=== PATIENT | male | born 1970 | race African-American/Black ===

== ENCOUNTER 2017-01-25 10:24 | Emergency (ER) | payer OTHER ==
[~2017-01-25] VITALS: Ht 177.8 cm; Wt 90.7 kg
[~2017-01-25 10:24] MED LIST: AMITRIPTYLINE H25 M2; IBUPROFEN 800800 M1 PO; PRILOSEC40 MG PO; VICODIN 5-5001 EACH PO; XANAX 0.5 MG0.5 M1 PO; ZOFRAN ODT4 MG PO; ZPAK PO
[2017-01-25 11:36] LABS: ABSOLUTE NEUTROPHILS 8.1 thou/uL (1.4-8.2); BASOPHILS 0.2 % (0.0-2.0); EOSINOPHILS 0.5 % (0.0-3.0); HEMATOCRIT 38.9 % (42.0-52.0); HEMOGLOBIN 13.6 gm/dL (14.0-18.0); MCH 30.8 pg (26.0-34.0); MCV 87.9 fL (80.0-100.0); PLATELET COUNT 248 thou/uL (150-400); POLYS 84.3 % (36.0-66.0); RBC 4.42 mil/uL (4.50-6.00); RDW 14.1 % (10.5-14.5); WBC 9.6 thou/uL (4.0-11.0)
[2017-01-25 11:37] LABS: MANUAL DIFF NO
[2017-01-25 11:44] LABS: CALCIUM 9.4 mg/dL (8.5-10.1); CREATININE 1.4 mg/dL (0.7-1.3); POTASSIUM 3.6 mmol/L (3.5-5.1)
[2017-01-25 11:50] LABS: ALBUMIN 4.1 g/dL (3.4-5.0); TOTAL BILIRUBIN 0.3 mg/dL (<0.1-1.0); TOTAL PROTEIN 8.2 g/dL (6.4-8.2)
[2017-01-25] MEDS ORDERED: PHENERGAN 25 MG25 M1 PO (13:53)
[2017-01-25] MEDS ORDERED: NAPROSYN500 MG PO (13:53)
[2017-01-25 14:15] VITALS: BP 125/83
== END 2017-01-25 13:54 | disposition home or self-care (01) ==
LOC: ER 10:24
PROVIDERS: Physician Assistant
DX: G89.29 Other chronic pain (principal); R10.13 Epigastric pain; R11.2 Nausea with vomiting, unspecified; Z88.8 Allergy status to other drugs, medicaments and biological substances

== ENCOUNTER 2017-04-17 15:16 | Inpatient (IN) | payer OTHER ==
[~2017-04-17] VITALS: Ht 180.3 cm; Wt 90.7 kg
--- NOTE | ~2017-04-17 | HC ---
[facility] [address] [address] CONSULTATION Name: MADDI OCASIO Norberto Room #: 401-I [facility] IN ..#: [id number] Admission: 04/17/17 Attend Phys: Ivory Tyson Discharge: Date of : 74 Report #: [id number] THIS REPORT FOR: //name// CC: FAM physician/PCP Ivory Tyson REASON FOR PRESENTATION: Abdominal pain. REASON FOR PRESENTATION CONSULTATION: Acute kidney injury. HISTORY OF PRESENT ILLNESS: A 46-year-old who presented to the emergency room complaining of persistent abdominal pain associated with nausea and vomiting over the last few days. Currently, this has been a chronic issue with him after his hernia repair. He takes some amitriptyline for anxiety, but no nonsteroidal anti-inflammatory medications. 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 He denies any fever, chills, constipation, diarrhea. He is not known to have hypertension or diabetes mellitus. There is a discontinued script of Naprosyn; however, the patient told me that he is not taking that any more. On presentation to the emergency room, the patient was found to have an acute kidney injury with the BUN of 37, creatinine of 6.7 and calcium of 13.0. The patient completely denies calcium intake. His albumin was elevated along with his protein. Drug screen was positive for marijuana and opiates. UA initially showed +2 protein, but no urine protein to creatinine ratio obtained. CT of the kidneys revealed that there is a small cyst on the left lower kidney, but otherwise no acute abnormality. PAST MEDICAL HISTORY: Anxiety. MEDICATION: Amitriptyline. FAMILY HISTORY: Significant for hypertension. ALLERGIES: COMPAZINE. SOCIAL HISTORY: Positive for marijuana abuse. No alcohol abuse. REVIEW OF SYSTEMS: GENERAL: No fever or chills. CARDIOVASCULAR: No chest pain or palpitation. PULMONARY: No cough or hemoptysis. GASTROINTESTINAL: As per the history of present illness. GENITOURINARY: No frequency, no urgency. PHYSICAL EXAMINATION: [facility] [address] [place] [address] CONSULTATION Name: MADDI OCASIO Norberto Room #: 401-I [facility] IN ..#: [id number] Admission: 04/17/17 Attend Phys: Ivory Tyson Discharge: Date of : 74 Report #: [id number] GENERAL: He is alert, oriented, in no apparent distress. VITAL SIGNS: Most recent vitals signs revealed a blood pressure of 130/90. Temperature 36, pulse rate 100. HEAD AND NECK: No jugular venous distention. CHEST: Clear to auscultation bilaterally. CARDIOVASCULAR: Regular with no rub. ABDOMEN: Soft, slight tenderness in the epigastrium. LOWER EXTREMITIES: No edema. LABORATORY VALUES: Reviewed. Creatinine is actually down to 3.9. Calcium is down to 10.1. ____ is 5.1. Serum protein electrophoresis is pending. White blood cell count is elevated at 18.9. ASSESSMENT, IMPRESSION AND PLAN: 1. Acute kidney injury. 2. Hypercalcemia. 3. Gastrointestinal illness. 4. Hyperproteinemia. 5. Elevated albumin. 6. Elevated protein value. 7. Proteinuria in an young man that will need further investigations. 8. Source of his acute kidney injury is really not clear to me; however, this could be old related to his gastrointestinal illness. 1. Appropriate investigation were sent. 2. Continue with IV fluid. 3. His creatinine is actually trending down. 4. Avoid nephrotoxins. 5. Serum protein electrophoresis is pending. I seriously doubt that he would have a myeloma; however, given his hypercalcemia and hyperproteinemia, will need to rule out. 6. Send CPK and LVH. 7. Continue with IV fluid. 8. Repeat labs in the morning. 9. Evaluate the urine protein to creatinine ratio. 10. Avoid nephrotoxins. 11. Watch volume status. 12. We will continue to follow along. By: [id number] Alejandro Lovett MD /nt
--- NOTE | ~2017-04-17 | EKG ---
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
[~2017-04-17 15:16] MED LIST changes: +NAPROSYN500 MG PO; +PHENERGAN 25 MG25 M1 PO
[2017-04-17 15:17] VITALS: BP 115/86
[2017-04-17 16:32] LABS: HEMATOCRIT 50.8 % (42.0-52.0); HEMOGLOBIN 17.3 gm/dL (14.0-18.0); MCH 30.1 pg (26.0-34.0); MCHC 34.1 g/dL (28.0-37.0); MCV 88.1 fL (80.0-100.0); PLATELET COUNT 368 thou/uL (150-400); RBC 5.76 mil/uL (4.50-6.00); RDW 14.6 % (10.5-14.5)
[2017-04-17 16:33] LABS: MANUAL DIFF YES
[2017-04-17 16:48] LABS: ALBUMIN 5.8 g/dL (3.4-5.0); CREATININE 6.7 mg/dL (0.7-1.3); POTASSIUM 4.2 mmol/L (3.5-5.1); TOTAL BILIRUBIN 0.6 mg/dL (<0.1-1.0); TOTAL PROTEIN 11.8 g/dL (6.4-8.2)
[2017-04-17 16:56] LABS: ABSOLUTE NEUTROPHILS 14.1 thou/uL (1.4-8.2); TOTAL CELL COUNT 100
[2017-04-17 17:54] VITALS: BP 106/81
[2017-04-17 19:00] LABS: URINE BILIRUBIN NEGATIVE (Negative); URINE BLOOD 3+ (Negative); URINE COLOR YELLOW; URINE GLUCOSE-RANDOM* NEGATIVE (Negative); URINE KETONES TRACE (Negative); URINE LEUKOCYTES-REFLEX NEGATIVE (Negative); URINE PROTEIN (DIPSTICK) 2+ (Negative); URINE SPECIFIC GRAVITY >= 1.030 (1.003-1.035); URINE UROBILINOGEN 0.2 E.U./dl (0.2-1.0)
[2017-04-17 19:03] LABS: URINE POTASSIUM-RANDOM* 119.4 mmol/L
[2017-04-17 19:07] LABS: AMP/METHAMP Negative (Negative); BARBITURATES Negative (Negative); BENZODIAZEPINES Negative (Negative); COCAINE Negative (Negative); METHADONE Negative (Negative); OPIATES POSITIVE (Negative); PCP Negative (Negative); THC POSITIVE (Negative)
[2017-04-17 19:09] LABS: CASTS None Seen /LPF (None Seen); CRYSTALS None Seen /LPF (None Seen); SQUAMOUS None Seen /LPF (0-3)
[2017-04-17 19:10] LABS: AMORPHOUS URATES Few /LPF (None Seen); HYALINE CASTS 4-10 Moderate /LPF (None Seen); URINE WBC-REFLEX 0-5 Rare /HPF (0-5)
[2017-04-17 19:11] LABS: URINE RBC 0-2 Rare /HPF (0-2)
[2017-04-17 20:00] VITALS: BP 141/92
[2017-04-18 04:00] VITALS: BP 132/91
[2017-04-18 05:23] LABS: HEMATOCRIT 42.2 % (42.0-52.0); MCH 29.9 pg (26.0-34.0); MCHC 33.7 g/dL (28.0-37.0); MCV 88.8 fL (80.0-100.0); RBC 4.76 mil/uL (4.50-6.00); RDW 13.9 % (10.5-14.5); WBC 18.9 thou/uL (4.0-11.0)
[2017-04-18 05:26] LABS: ALBUMIN 4.3 g/dL (3.4-5.0); PHOSPHORUS 5.1 mg/dL (2.5-4.9); POTASSIUM 4.1 mmol/L (3.5-5.1)
[2017-04-18 05:30] LABS: HEMOGLOBIN 14.2 gm/dL (14.0-18.0)
[2017-04-18 05:31] LABS: CALCIUM 10.1 mg/dL (8.5-10.1); CREATININE 3.9 mg/dL (0.7-1.3)
[2017-04-18 08:36] VITALS: BP 145/83
[2017-04-18 11:27] LABS: URINE CREATININE-RANDOM* 219.6 mg/dL
[2017-04-18 19:30] VITALS: BP 133/73
[2017-04-18 23:25] VITALS: BP 143/82
[2017-04-19 03:30] VITALS: BP 123/83
[2017-04-19 07:25] VITALS: BP 132/86
[2017-04-19 10:12] LABS: HEMATOCRIT 38.5 % (42.0-52.0); HEMOGLOBIN 13.1 gm/dL (14.0-18.0); MCHC 33.9 g/dL (28.0-37.0); MCV 88.5 fL (80.0-100.0); RBC 4.35 mil/uL (4.50-6.00); RDW 13.8 % (10.5-14.5); WBC 8.2 thou/uL (4.0-11.0)
[2017-04-19 10:19] LABS: ALBUMIN 3.8 g/dL (3.4-5.0); CALCIUM 9.3 mg/dL (8.5-10.1); PHOSPHORUS 2.6 mg/dL (2.5-4.9); POTASSIUM 3.7 mmol/L (3.5-5.1)
[2017-04-19 10:24] LABS: CREATININE 1.9 mg/dL (0.7-1.3)
[2017-04-19] MEDS ORDERED: ACETAMINOPHEN325 M1 PO (10:48)
[2017-04-19] MEDS ORDERED: AMITRIPTYLINE H25 M2 PO (11:07)
[2017-04-19 13:29] VITALS: BP 132/86
[2017-04-19 20:08] LABS: HIV ANTIBODY Non Reactive (Non Reactive)
[2017-04-20 16:08] LABS: KAPPA FREE LIGHT CHAINS 12.1 mg/L (3.3-19.4); KAPPA/LAMBDA RATIO 1.46 (0.26-1.65); LAMBDA FREE LIGHT CHAINS 8.3 mg/L (5.7-26.3)
[2017-04-21 10:11] LABS: ALBUMIN 5.4 g/dL (2.9-4.4); ALPHA 1 0.3 g/dL (0.0-0.4); BETA 2.3 g/dL (0.7-1.3); GAMMA 1.7 g/dL (0.4-1.8); M-SPIKE Not Observed g/dL (Not Observed)
== END 2017-04-19 13:50 | disposition home or self-care (01) | DRG 683 ==
LOC: ER 15:16 → 4N 17:45 → 4S 18:26 → 4N 18:30 → ENTRNSPT 04-19 13:57
PROVIDERS: Hospitalist; Physician Assistant
DX: N17.9 Acute kidney failure, unspecified (principal); E87.2 Acidosis; E83.52 Hypercalcemia; F41.9 Anxiety disorder, unspecified; E88.09 Other disorders of plasma-protein metabolism, not elsewhere classified; G89.29 Other chronic pain; F19.10 Other psychoactive substance abuse, uncomplicated; E86.9 Volume depletion, unspecified; D89.2 Hypergammaglobulinemia, unspecified; Z82.49 Family history of ischemic heart disease and other diseases of the circulatory system; Z88.8 Allergy status to other drugs, medicaments and biological substances
CPT/HCPCS: 10790

== ENCOUNTER 2017-07-03 21:39 | Inpatient (IN) | payer OTHER ==
[~2017-07-03] VITALS: Ht 177.8 cm; Wt 90.7 kg
[~2017-07-03 21:39] MED LIST changes: +ACETAMINOPHEN325 M1 PO; +AMITRIPTYLINE H25 M2 PO
[2017-07-03 21:40] VITALS: BP 124/64
[2017-07-04 00:23] LABS: CALCIUM 10.1 mg/dL (8.5-10.1); CREATININE 2.6 mg/dL (0.7-1.3); POTASSIUM 3.8 mmol/L (3.5-5.1)
[2017-07-04 00:28] LABS: ALBUMIN 4.5 g/dL (3.4-5.0); TOTAL BILIRUBIN 0.4 mg/dL (<0.1-1.0); TOTAL PROTEIN 8.7 g/dL (6.4-8.2)
[2017-07-04 00:39] LABS: BASOPHILS 0.3 % (0.0-2.0); EOSINOPHILS 0.2 % (0.0-3.0); HEMATOCRIT 39.5 % (42.0-52.0); HEMOGLOBIN 13.4 gm/dL (14.0-18.0); LYMPHOCYTES 9.8 % (24.0-44.0); MCH 30.6 pg (26.0-34.0); MCV 90.1 fL (80.0-100.0); MONOCYTES 5.5 % (1.0-8.0); PLATELET COUNT 263 thou/uL (150-400); POLYS 84.2 % (36.0-66.0); RBC 4.39 mil/uL (4.50-6.00); RDW 14.3 % (10.5-14.5); WBC 10.7 thou/uL (4.0-11.0)
[2017-07-04 06:01] VITALS: BP 113/75
[2017-07-04 06:51] VITALS: BP 143/98
[2017-07-04 08:25] VITALS: BP 151/105
[2017-07-04 15:05] VITALS: BP 135/95
[2017-07-04 17:08] LABS: GLYCOHEMOGLOBIN (HGB A1C) 5.9 % (4.8-5.6)
[2017-07-04 19:04] VITALS: BP 144/106
[2017-07-05 00:42] LABS: URINE BILIRUBIN NEGATIVE (Negative); URINE BLOOD NEGATIVE (Negative); URINE CLARITY CLEAR; URINE COLOR YELLOW; URINE GLUCOSE-RANDOM* NEGATIVE (Negative); URINE KETONES NEGATIVE (Negative); URINE LEUKOCYTES-REFLEX NEGATIVE (Negative); URINE NITRITE-REFLEX NEGATIVE (Negative); URINE PROTEIN (DIPSTICK) NEGATIVE (Negative); URINE SPECIFIC GRAVITY 1.025 (1.005-1.035)
[2017-07-05 00:50] LABS: AMP/METHAMP Negative (Negative); BARBITURATES Negative (Negative); BENZODIAZEPINES Negative (Negative); COCAINE Negative (Negative); METHADONE Negative (Negative); OPIATES Negative (Negative); PCP Negative (Negative)
[2017-07-05 03:41] VITALS: BP 140/107
[2017-07-05 06:09] LABS: CALCIUM 8.8 mg/dL (8.5-10.1)
[2017-07-05 06:10] LABS: CREATININE 1.2 mg/dL (0.7-1.3)
[2017-07-05 07:15] VITALS: BP 133/97
[2017-07-05] MEDS ORDERED: ZOFRAN ODT4 MG PO (08:50)
[2017-07-05 08:59] VITALS: BP 133/97
== END 2017-07-05 09:41 | disposition home or self-care (01) | DRG 103 ==
LOC: ER 21:39 → EROBS 07-04 01:41 → 4E 07-04 01:41
PROVIDERS: Emergency Medicine; Nurse Practitioner Acute Care
DX: G43.A0 Cyclical vomiting, in migraine, not intractable (principal); N17.9 Acute kidney failure, unspecified; R73.9 Hyperglycemia, unspecified; G89.29 Other chronic pain; Z88.8 Allergy status to other drugs, medicaments and biological substances
CPT/HCPCS: 10084

== ENCOUNTER 2019-08-03 20:19 | Emergency (ER) | payer OTHER ==
[~2019-08-03] VITALS: Ht 177.8 cm; Wt 90.7 kg
[2019-08-03 21:54] LABS: URINE BILIRUBIN NEGATIVE (Negative); URINE BLOOD NEGATIVE (Negative); URINE CLARITY CLEAR; URINE COLOR YELLOW; URINE GLUCOSE-RANDOM* NEGATIVE (Negative); URINE KETONES NEGATIVE (Negative); URINE LEUKOCYTES-REFLEX NEGATIVE (Negative); URINE NITRITE-REFLEX NEGATIVE (Negative); URINE PROTEIN (DIPSTICK) NEGATIVE (Negative)
[2019-08-03 22:52] LABS: ABSOLUTE NEUTROPHILS 4.8 thou/uL (1.4-8.2); BASOPHILS 0.4 % (0.0-2.0); EOSINOPHILS 0.6 % (0.0-3.0); HEMATOCRIT 38.7 % (42.0-52.0); HEMOGLOBIN 13.3 gm/dL (14.0-18.0); LYMPHOCYTES 24.4 % (24.0-44.0); MCHC 34.5 g/dL (28.0-37.0); MCV 89.9 fL (80.0-100.0); MONOCYTES 10.2 % (1.0-8.0); PLATELET COUNT 292 thou/uL (150-400); POLYS 64.4 % (36.0-66.0); RDW 13.8 % (10.5-14.5); WBC 7.5 thou/uL (4.0-11.0)
[2019-08-03 23:12] LABS: CALCIUM 9.5 mg/dL (8.5-10.1); CREATININE 2.1 mg/dL (0.7-1.3); POTASSIUM 3.5 mmol/L (3.5-5.1)
[2019-08-03 23:18] LABS: ALBUMIN 4.3 g/dL (3.4-5.0); DIRECT BILIRUBIN 0.2 mg/dL (<0.1-0.2); TOTAL BILIRUBIN 0.8 mg/dL (<0.1-1.0); TOTAL PROTEIN 8.5 g/dL (6.4-8.2)
[2019-08-03 23:29] LABS: AMP/METHAMP Negative (Negative); BARBITURATES Negative (Negative); BENZODIAZEPINES Negative (Negative); COCAINE Negative (Negative); METHADONE Negative (Negative); OPIATES Negative (Negative); PCP Negative (Negative)
[2019-08-04 01:05] VITALS: BP 161/92
== END 2019-08-04 04:04 | disposition home or self-care (01) ==
LOC: ER 20:19
PROVIDERS: Emergency Medicine
DX: R10.33 Periumbilical pain (principal); R11.2 Nausea with vomiting, unspecified; Z88.8 Allergy status to other drugs, medicaments and biological substances

== ENCOUNTER 2020-01-02 17:25 | Emergency (ER) | payer OTHER ==
[~2020-01-02] VITALS: Ht 177.8 cm; Wt 108.9 kg
[2020-01-02 17:59] LABS: BASOPHILS 0.8 % (0.0-2.0); EOSINOPHILS 1.2 % (0.0-3.0); HEMATOCRIT 41.2 % (42.0-52.0); HEMOGLOBIN 14.3 gm/dL (14.0-18.0); LYMPHOCYTES 36.4 % (24.0-44.0); MCH 31.2 pg (26.0-34.0); MCHC 34.6 g/dL (28.0-37.0); MCV 90.3 fL (80.0-100.0); PLATELET COUNT 322 thou/uL (150-400); POLYS 52.6 % (36.0-66.0); RBC 4.57 mil/uL (4.50-6.00); RDW 14.8 % (10.5-14.5); WBC 7.5 thou/uL (4.0-11.0)
[2020-01-02 18:07] LABS: CALCIUM 9.7 mg/dL (8.5-10.1); CREATININE 1.6 mg/dL (0.7-1.3); POTASSIUM 3.7 mmol/L (3.5-5.1)
[2020-01-02 18:14] LABS: ALBUMIN 4.1 g/dL (3.4-5.0); TOTAL BILIRUBIN 0.2 mg/dL (0.2-1.0); TOTAL PROTEIN 8.2 g/dL (6.4-8.2)
[2020-01-02] MEDS ORDERED: LEVSIN0.125 MG PO (19:48)
[2020-01-02 19:57] LABS: URINE BILIRUBIN NEGATIVE (Negative); URINE BLOOD NEGATIVE (Negative); URINE CLARITY CLEAR; URINE COLOR YELLOW; URINE GLUCOSE-RANDOM* NEGATIVE (Negative); URINE KETONES TRACE (Negative); URINE LEUKOCYTES-REFLEX NEGATIVE (Negative); URINE NITRITE-REFLEX NEGATIVE (Negative); URINE PROTEIN (DIPSTICK) NEGATIVE (Negative); URINE SPECIFIC GRAVITY >= 1.030 (1.005-1.035)
[2020-01-02 20:06] LABS: AMP/METHAMP Negative (Negative); BARBITURATES Negative (Negative); BENZODIAZEPINES Negative (Negative); COCAINE Negative (Negative); METHADONE Negative (Negative); OPIATES POSITIVE (Negative); PCP Negative (Negative)
[2020-01-02 20:20] VITALS: BP 142/74
== END 2020-01-02 20:15 | disposition home or self-care (01) ==
LOC: ER 17:25
PROVIDERS: Physician Assistant
DX: R10.84 Generalized abdominal pain (principal); F12.10 Cannabis abuse, uncomplicated; N17.9 Acute kidney failure, unspecified; Z79.899 Other long term (current) drug therapy; Z88.8 Allergy status to other drugs, medicaments and biological substances

== ENCOUNTER 2020-03-21 15:40 | Emergency (ER) | payer OTHER ==
[~2020-03-21] VITALS: Ht 177.8 cm; Wt 90.7 kg
[~2020-03-21 15:40] MED LIST changes: +LEVSIN0.125 MG PO
[2020-03-21 17:14] LABS: ABSOLUTE NEUTROPHILS 5.4 thou/uL (1.4-8.2); BASOPHILS 0.3 % (0.0-2.0); EOSINOPHILS 0.9 % (0.0-3.0); HEMATOCRIT 39.7 % (42.0-52.0); HEMOGLOBIN 13.6 gm/dL (14.0-18.0); LYMPHOCYTES 22.5 % (24.0-44.0); MCH 30.8 pg (26.0-34.0); MCHC 34.2 g/dL (28.0-37.0); MONOCYTES 5.6 % (1.0-8.0); PLATELET COUNT 293 thou/uL (150-400); POLYS 70.7 % (36.0-66.0); RBC 4.41 mil/uL (4.50-6.00); RDW 14.8 % (10.5-14.5); WBC 7.6 thou/uL (4.0-11.0)
[2020-03-21 17:32] LABS: CALCIUM 9.6 mg/dL (8.5-10.1); CREATININE 1.4 mg/dL (0.7-1.3); POTASSIUM 4.2 mmol/L (3.5-5.1)
[2020-03-21 17:34] LABS: ALBUMIN 4.1 g/dL (3.4-5.0); DIRECT BILIRUBIN 0.1 mg/dL (<0.1-0.2); TOTAL BILIRUBIN 0.3 mg/dL (0.2-1.0); TOTAL PROTEIN 8.2 g/dL (6.4-8.2)
[2020-03-21] MEDS ORDERED: ONDANSETRON ODT8 MG PO (19:06)
[2020-03-21 19:09] VITALS: BP 122/82
== END 2020-03-21 19:12 | disposition home or self-care (01) ==
LOC: ER 15:40
PROVIDERS: Emergency Medicine
DX: F12.988 Cannabis use, unspecified with other cannabis-induced disorder (principal); R11.2 Nausea with vomiting, unspecified; R10.13 Epigastric pain; Z79.899 Other long term (current) drug therapy; Z88.8 Allergy status to other drugs, medicaments and biological substances

== ENCOUNTER 2020-09-08 14:44 | Emergency (ER) | payer OTHER ==
[~2020-09-08] VITALS: Ht 177.8 cm; Wt 90.7 kg
[~2020-09-08 14:44] MED LIST changes: +ONDANSETRON ODT8 MG PO
[2020-09-08] MEDS ORDERED: AMITRIPTYLINE H50 M2 PO (14:53)
[2020-09-08 17:01] LABS: HEMOGLOBIN 14.2 gm/dL (14.0-18.0); MCH 29.9 pg (26.0-34.0); MCHC 33.8 g/dL (28.0-37.0); MCV 88.4 fL (80.0-100.0); RBC 4.75 mil/uL (4.50-6.00); RDW 14.1 % (10.5-14.5); WBC 9.4 thou/uL (4.0-11.0)
[2020-09-08 17:08] LABS: CREATININE 2.1 mg/dL (0.7-1.3); POTASSIUM 3.3 mmol/L (3.5-5.1)
[2020-09-08 17:13] LABS: ALBUMIN 4.6 g/dL (3.4-5.0); TOTAL BILIRUBIN 0.4 mg/dL (0.2-1.0); TOTAL PROTEIN 8.8 g/dL (6.4-8.2)
[2020-09-08 17:53] LABS: URINE BILIRUBIN NEGATIVE (Negative); URINE BLOOD NEGATIVE (Negative); URINE CLARITY CLEAR; URINE COLOR YELLOW; URINE GLUCOSE-RANDOM* NEGATIVE (Negative); URINE KETONES 1+ (Negative); URINE LEUKOCYTES-REFLEX NEGATIVE (Negative); URINE NITRITE-REFLEX NEGATIVE (Negative); URINE PROTEIN (DIPSTICK) 1+ (Negative); URINE SPECIFIC GRAVITY 1.025 (1.005-1.035)
[2020-09-08 18:00] LABS: AMP/METHAMP Negative (Negative); BARBITURATES Negative (Negative); BENZODIAZEPINES Negative (Negative); COCAINE Negative (Negative); METHADONE Negative (Negative); OPIATES Negative (Negative); PCP Negative (Negative)
[2020-09-08 18:03] LABS: SQUAMOUS None Seen /LPF (0-3)
[2020-09-08 18:04] LABS: BACTERIA-REFLEX 1-9 Few /HPF (None Seen); CASTS None Seen /LPF (None Seen); CRYSTALS None Seen /LPF (None Seen); MUCUS 0-3 Light strn/LPF (None Seen); URINE RBC None Seen /HPF (0-2); URINE WBC-REFLEX 0-5 Rare /HPF (0-5)
[2020-09-08 19:51] LABS: CALCIUM 9.1 mg/dL (8.5-10.1); CREATININE 1.8 mg/dL (0.7-1.3); POTASSIUM 4.2 mmol/L (3.5-5.1)
[2020-09-08 20:17] VITALS: BP 157/96
== END 2020-09-08 20:18 | disposition home or self-care (01) ==
LOC: ER 14:44
PROVIDERS: Nurse Practitioner Family
DX: F12.988 Cannabis use, unspecified with other cannabis-induced disorder (principal); R11.10 Vomiting, unspecified; N17.9 Acute kidney failure, unspecified; Z79.899 Other long term (current) drug therapy; Z88.8 Allergy status to other drugs, medicaments and biological substances